=== PATIENT | male | born 1965 | race Caucasian/White ===

== ENCOUNTER 2024-08-17 10:54 | Emergency (ER) | payer BC, SELFPAY ==
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
[2024-08-17 11:12] VITALS: BP 140/104; PULSE 80; RESP 18; TEMP 37; O2SAT 98; BMI 40.8
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
[2024-08-17] MEDS: Ibuprofen 600 MG TABLET PO (12:14)
[2024-08-17] MEDS: Lidocaine 4 % Patch ADH..PATCH 2 PATCH TRANSDERMA (12:14)
--- NOTE | 2024-08-17 12:30 | PC.NURSE ---
Patient medicated per provider orders for pain. 2 Lidocaine patches applied between scapulas. Patient sitting upright, states that pain is worse when trying to raise his arms or reach for something, or any other types of movements. Care ongoing by this RN.
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
--- OUTSIDE RECORDS SUMMARY | 2024-08-17 13:07 | XMS_ITS | Clinical Summary ---
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 90 tablet 1 07/04/2024 Active atorvastatin (LIPITOR) 10 mg tablet Take 0.5 tablets (5 mg total) by mouth at bedtime. 45 tablet 1 07/04/2024 Active Active Problems Problem Noted Date Diagnosed Date Mesenteric panniculitis (CMS/HCC V24, CMS/HCC V2 8) 07/16/2024 Assessment & Plan (08/01/2024 12:27 PM EDT): Reviewed this diagnosis. Low suspicion mesenteric panniculitis is causing his abdominal pain given his pain is positionally induced with heavy lifting and lack of other GI concerns. Can complete a trial of NSAID or Tylenol as needed. Consider dicyclomine, however recommend surgical consult first. CT scan in 6 months as recommended. Follow up pending repeat imaging results and surgery's recommendations. Morbid obesity with BMI of 4 0.0-44.9, adult (CMS/HCC V24, CMS/HCC V28) 04/02/2024 Prediabetes 07/09/2021 Erectile dysfunction 11/09/2019 Hypertension 04/17/2019 Hyperlipidemia 03/24/2018 Tubular adenoma 04/07/2016 Overview (04/02/2024): 07/07; normal 11/11, repeat 2024 Diverticulosis 07/19/2014 Overview (04/02/2024): Incidental finding at colonoscopy 07/19/2014. Hypogonadism male 08/06/2011 SCOOTER (obstructive sleep apnea) 08/06/2011 Overview (04/02/2024): Refuses cpap SMS Home Sleep Apnea Test: Date 01/03/2020; Wt 229#; BMI 36; DEMARIO (AHI) 21, AI 13; HI 8; Unclassified apneas 16; Obstructive apneas 42; Central apneas 18; Mixed apneas 2; hypopneas 51; average oxygen saturation 95% (lowest 75% without saturations <88% for 5% or more of study) - Obstructive Sleep Apnea - moderate; mostly hypopneas and obstructive and unclassified apneas; without sleep related hypoventilation by 2019 home sleep apnea test. Diastasis recti 11/18/2009 Genital herpes 09/15/2005 Psoriasis 09/15/2005 Encounters Date Type Department Care Team Description 08/17/2024 Telephone Adult Medicine [address] [phone] Cassie Car MD Back Pain 08/07/2024 3:45 PM EDT Consult General Surgery - [place] [address] [facility] [address] [place] [address] Aric Wheeler, Periumbilical abdominal pain 08/01/2024 10:30 AM EDT Consult Gastroenterology - [address] [facility] [address] [facility] [address] [place] [phone] Eli Kumar PA Pain of upper abdomen (Primary Dx); Mesenteric panniculitis ([facility] V24, [facility] V28) 07/12/2024 Telephone Adult Medicine [address] [place] [phone] Car MD returning DR Car phone call from this morning per patient 07/10/2024 11:01 AM EDT - 07/10/2024 11:59 PM EDT Hospital Encounter CT Scan [address] [phone] Periumbilical abdominal pain Discharge Disposition: Home or Self Care 07/04/2024 4:00 PM EDT Office Visit Adult Medicine [address] [phone] Cassie Car MD Primary hypertension (Primary Dx); Other hyperlipidemia; Prediabetes; Diastasis recti; Periumbilical abdominal pain from Last 3 Months Immunizations Name Administration Dates Next Due Influenza Quadravalent, MDCK , 0.5ml, preservative free (Flucelvax) 6mo and older 12/30/2023 Influenza Quadravalent, MDCK , 0.5ml, with preservative (Flucelvax) 6mo and older 02/09/2018,01/24/2016 Influenza trivalent, 0.5mL, preservative free (Fluarix; FluLaval; Fluzone) ages 6mo and older (Afluria) 3 years and older 02/06/2014,02/20/2010,02/10/2008 Influenza, Unspecified 01/25/2023,02/09/2022,04/2015 Td Tetanus diptheria (Tdvax) 7yo and older 02/22 Tdap Tetanus diptheria acell ular pertussis (Boostrix; Adacel) 7yo and older 01/05/2008 Zoster recombinant (Shingrix ) 19yo and older 01/21/2021,10/22/2020 Surgical History Surgery Date Site/Laterality Comments TONSILLECTOMY VASECTOMY COLONOSCOPY 2014 : 4 mm cecal polyp and 9 mm LC polyp: tubular adenoma x 2. COLONOSCOPY 11/02/2019 No polyps, repeat in 5 to 7 years. Medical History Medical History Date Comments Genital herpes, unspecified Other psoriasis Diverticulosis of colon (wit hout mention of hemorrhage) 07/19/2014 Incidental finding at colono scopy 07/19/2014. adenomas. Repeat in 5 yrs. SCOOTER (obstructive sleep apnea) 08/06/2011 DX :SCOOTER (obstructive sleep apnea); COMMENT: Refuses cpap Tubular adenoma 04/07/201607/07; repeat CN 2019 Diastasis recti 11/18/2009 Morbid obesity ([facility] V24, [facility] V28) 04/07/2016 Family History Medical History Relation Name Comments Heart attack Brother 1 EtOH abuse Heart attack Brother 2 x 2 Heart attack Father EtOH abuse Hypertension Mother dementia Relation Name Status Comments Brother 1 Brother 2 x 2 Alive Father Maternal Grandfather Maternal Grandmother Mother Paternal Grandfather Paternal Grandmother Social History Tobacco Use Types Packs/Day Years Used Date Smoking Tobacco: Never Smokeless Tobacco: Never Tobacco Cessation:Counseling Given: Not Answered Alcohol Use Standard Drinks/Week Comments Yes 0 (1 standard drink = 0.6 oz pur e alcohol) occasional Sex and Gender Information Value Date Recorded Sex Assigned at Not on file Legal Sex Male 4:14 PM EST Gender Identity Not on file Sexual Orientation Not on file Obstetrics History Last Filed Vital Signs Vital Sign Reading Time Taken Comments Blood Pressure 125/75 08/07/2024 3:26 PM EDT Pulse 83 08/07/2024 3:26 PM EDT Temperature 36.3 ??C (97.3 ??F) 07/04/2024 3:46 PM ED T Respiratory Rate 16 07/04/2024 3:46 PM EDT Oxygen Saturation 96% 07/04/2024 3:46 PM EDT Inhaled Oxygen Concentration - - Weight 115 kg (254 lb) 08/07/2024 3:26 PM EDT Height 170.2 cm (5' 7 ) 08/07/2024 3:26 PM EDT Body Mass Index 39.78 08/07/2024 3:26 PM EDT Plan of Treatment Health Maintenance Due Date Last Done Comments Pneumococcal Vaccine: 50+ Years (1 of 1 - PCV) 2013 Depression Screening 04/03/2022 HIV Screening 04/03/2022 Social Influencers of Health Screening 04/03/2022 RSV Immunization Adult Patients (1 - Risk 60-74 years 1-dose series) 2023 COVID-19 Vaccine ( season) 2023 03/20/2021, 08/24/2020, 08/03/2020 Colorectal Cancer Screening: Colonoscopy 11/01/2024 11/02/2019, 07/19/2014 Hypertension/CHF/CAD Annual BMP Blood Test 01/13/2025 01/14/2024, 01/14/2024 DTaP,Tdap,and Td Vaccines (3 - Td or Tdap) 02/22/2027 02/22/2017, 01/05/2008 Cholesterol Screening (Lipid Panel) 01/13/2029 01/14/2024, 01/14/2024 Hepatitis C Screening Completed 04/10/2016 Zoster Vaccines Completed 01/21/2021, 10/22/2020 Influenza Vaccine Completed 12/30/2023, , 02/09/2022, Additional history exists HIB Vaccines Aged Out No longer eligi ble based on patient's age to complete this topic HPV Vaccines Aged Out No longer eligi ble based on patient's age to complete this topic Hepatitis A Vaccines Aged Out No long er eligible based on patient's age to complete this topic Hepatitis B Vaccines Aged Out No long er eligible based on patient's age to complete this topic IPV Vaccines Aged Out No longer eligi ble based on patient's age to complete this topic MMR Vaccines Aged Out No longer eligi ble based on patient's age to complete this topic Meningococcal ACWY Vaccine Aged Out N o longer eligible based on patient's age to complete this topic Meningococcal B Vaccine Aged Out No l onger eligible based on patient's age to complete this topic Pneumococcal Vaccine: Pediatrics (0 to 5 Years) and At-Risk Patients (6 to 64 Years) Aged Out No longer eligible based on patient's age to complete this topic RSV Immunization Patients Under 20 months Aged Out No longer eligible based on patient's age to complete this topic Varicella Vaccines Aged Out No longer eligible based on patient's age to complete this topic Procedures Procedure Name Priority Date/Time Associated Diagnosis Comments HEMOGLOBIN A1C Routine 08/09/2024 3:[address] ABDOMEN PELVIS WO CONTRAST Routine 07/10/2024 11:23 AM EDT Periumbilical abdominal pain HM ANNUAL BMP BLOOD TEST Routine 01/14/2024 LIPID PANEL Routine 01/14/2024 COLONOSCOPY Routine 11/02/2019 HEPATITIS C SCREENING Routine 04/10/2016 from Last 3 Months or Most Recently Relevant to Health Maintenance Results * Hemoglobin A1c (08/09/2024 3:51 PM EDT) Hemoglobin A1C 5.8 <6.5 % LAB CHEMISTRY METHOD 08/09/2024 9:40 PM EDT [facility] Mean Bld Glu Estim. 120 mg/dL LAB CHEMISTRY METHOD 08/09/2024 9:40 PM EDT [facility] Blood Venous blood specimen / Unknown Venipuncture / Unknown 08/09/2024 3:51 PM EDT 08/09/2024 3:51 PM EDT us Cassie Car MD LAB BLOOD ORDERABLES Final Resul t [facility] [address] [place] [address], [place] [phone] * CT Abdomen Pelvis wo Contrast (07/10/2024 11:23 AM EDT) Anatomical Region Laterality Modality Body Computed Tomogra phy 07/10/2024 12:3 4 PM EDT Impressions 07/11/2024 4:35 PM EDT Findings suggestive of mesenteric panniculitis. ??Recommend 6 month follow-up CT as a neoplastic process such as lymphoma can also have this appearance. POS - [id number] -------- FINAL REPORT -------- Dictated By: Emelyn Mead Dictated Date: 07/10/2024 12:34 ET Assigned Physician: Emelyn Mead Reviewed and Electronically Signed By: Emelyn Mead Signed Date: 07/11/2024 16:35 ET Workstation ID: [id number] Transcribed By: Self Edit Transcribed Date: 07/10/2024 13:15 ET Narrative 07/11/2024 4:35 PM EDT EXAM: CT abdomen and pelvis HISTORY: Periumbilical and epigastric pain. COMPARISON: None TECHNIQUE: CT of the abdomen and pelvis with oral and without intravenous contrast. Coronal and sagittal reformatted images were generated. The radiation dose total CTDIvol: 23.30 mGy. FINDINGS: Limited assessment of solid organs without IV contrast. ?? Lower thorax: No infiltrate in the basal lungs. ??No pleural or pericardial effusions. Liver: No abnormality detected. Gallbladder/biliary tree: No calcified gallstones or pericholecystic inflammatory change. ??No biliary ductal dilatation. Spleen: No abnormality detected. Pancreas: No abnormality detected. Adrenal glands: No masses. Kidneys/ureters: ??No hydronephrosis. ??No renal or ureteral stones. Vasculature: Mild atherosclerotic calcifications. ??No abdominal aortic aneurysm. Peritoneum: Large masslike area of increased attenuation (randa mesentery) in the central mesentery with a pseudocapsule in many areas. ??Associated multiple prominent mesenteric lymph nodes. ??Findings are concerning for mesenteric panniculitis. ??No evidence of free intraperitoneal air, free fluid, or organized collection. Lymph nodes: No pathologically enlarged lymph nodes. Bowel: No evidence of a bowel obstruction. ??No bowel inflammatory changes. ??Extensive colonic diverticulosis. ??Normal appendix. ??The duodenum appears to cross the midline but does not extend into the left upper quadrant indicating abnormal position of the ligament of Treitz suggestive of a degree of malrotation. ??Duodenal diverticulum arising from the horizontal portion. Body wall: Very small fat-containing left inguinal hernia. Bladder: No abnormality detected. Reproductive: Coarse calcifications in a nonenlarged prostate gland. ??Seminal vesicles are unremarkable. Bones: Multilevel degenerative changes in the spine. Procedure Note Emelyn Mead MD - 07/11/2024 EXAM: CT abdomen and pelvis HISTORY: Periumbilical and epigastric pain. COMPARISON: None TECHNIQUE: CT of the abdomen and pelvis with oral and without intravenouscontrast. Coronal and sagittal reformatted images were generated. Theradiation dose total CTDIvol: 23.30 mGy. FINDINGS: Limited assessment of solid organs without IV contrast. Lower thorax: No infiltrate in the basal lungs. No pleural or pericardialeffusions. Liver: No abnormality detected. Gallbladder/biliary tree: No calcified gallstones or pericholecysticinflammatory change. No biliary ductal dilatation. Spleen: No abnormality detected. Pancreas: No abnormality detected. Adrenal glands: No masses. Kidneys/ureters: No hydronephrosis. No renal or ureteral stones. Vasculature: Mild atherosclerotic calcifications. No abdominal aorticaneurysm. Peritoneum: Large masslike area of increased attenuation (randa mesentery)in the central mesentery with a pseudocapsule in many areas. Associatedmultiple prominent mesenteric lymph nodes. Findings are concerning formesenteric panniculitis. No evidence of free intraperitoneal air, freefluid, or organized collection. Lymph nodes: No pathologically enlarged lymph nodes. Bowel: No evidence of a bowel obstruction. No bowel inflammatory changes.Extensive colonic diverticulosis. Normal appendix. The duodenum appearsto cross the midline but does not extend into the left upper quadrantindicating abnormal position of the ligament of Treitz suggestive of adegree of malrotation. Duodenal diverticulum arising from the horizontalportion. Body wall: Very small fat-containing left inguinal hernia. Bladder: No abnormality detected. Reproductive: Coarse calcifications in a nonenlarged prostate gland.Seminal vesicles are unremarkable. Bones: Multilevel degenerative changes in the spine. IMPRESSION: Findings suggestive of mesenteric panniculitis. Recommend 6 monthfollow-up CT as a neoplastic process such as lymphoma can also have thisappearance. POS - [id number] -------- FINAL REPORT -------- Dictated By: Emelyn Mead Dictated Date: 07/10/2024 12:34 ET Assigned Physician: Emelyn Mead Reviewed and Electronically Signed By: Emelyn Mead Signed Date: 07/11/2024 16:35 ET Workstation ID: [id number] Transcribed By: Self Edit Transcribed Date: 07/10/2024 13:15 ET Cassie Car MD IM CT PROCEDURES Final Result * Annual BMP Blood Test (01/14/2024) Annual BMP Blood Test Abstracted Historical Provider HEALTH MAINTENANCE Final Result * (ABNORMAL) Lipid panel (01/14/2024) [facility] LDL/HDL Ratio 4 0 - 4 Triglycerides 71 0 - 150 mg/dL Cholesterol 172 0 - 200 mg/dL HDL 40 >=40 mg/dL LDL Cholesterol 118(A) 0 - 100 mg/dL Blood Venous blood specimen / Unknown Result [facility] Provider LAB BLOOD ORDERABLES Desiree l Result * Colonoscopy (11/02/2019) Pathologist [facility] Colonoscopy no interpretation , abstracted Anatomical Region Laterality Modality Other [facility] Provider HEALTH MAINTENANCE Final Result * Hepatitis C Screening (04/10/2016) 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
--- NOTE | 2024-08-17 13:32 | PC.NURSE ---
Patient requested work note to excuse him for at least a month . Spoke with Consuelo Epperson NP who advises follow up with PCP. Excuse note given for 08/17/2024 to 08/21/2024. Patient was upset about the length of time to excuse him from work, and was repeatedly instructed to follow up with PCP/specialist for furthe evaluation and as-needed extended absence from work. Patient rolled his eyes at this RN, but signed discharge paperwork prior to leaving ED. Pain with movement. Rx sent to patient's pharmacy. Ankylosing spondylosis noted on xray without acute fractures.
[2024-08-17 13:34] VITALS: BP 140/104; PULSE 80; RESP 18; TEMP 37; O2SAT 98
== END 2024-08-17 13:34 | disposition home or self-care (01) ==
PROVIDERS: Emergency Provider Emergency Medicine; PCP Internal Medicine
DX: M54.6 Pain in thoracic spine (principal)
CPT/HCPCS: 72072; 99283

== ENCOUNTER → 2024-08-17 11:15 | Outpatient (BNV) | payer BC, SELFPAY | PROVIDERS: Emergency Provider Emergency Medicine; PCP Internal Medicine; Visit Provider Radiology Diagnostic Radiology | DX: M54.6 Pain in thoracic spine (principal) | CPT/HCPCS: 72072 ==